=== PATIENT | female | born 1995 | race American Indian/Alaskan Native ===

== ENCOUNTER 2017-05-15 12:53 | Emergency (ER) | payer BC ==
[2017-05-15 14:22] LABS: Hematocrit 38.3 % (30.3-42.9); Mean Corpuscular HGB Conc 34 % (30-34); Mean Corpuscular Hemoglobin 30 pg (28-32); Mean Corpuscular Volume 88 fl (79-97); Platelet Count 120 K/mm3 (140-440); Red Blood Count 4.37 M/mm3 (3.65-5.03); Red Cell Distribution Width 14.7 % (13.2-15.2); White Blood Count 7.6 K/mm3 (4.5-11.0)
[2017-05-15 14:27] LABS: Bacteria,Urine 1+ /HPF (Negative); Bilirubin,Urine NEG (Negative); Blood,Urine NEG (Negative); Ketones,Urine NEG (Negative); Leukocyte Esterase,Urine NEG (Negative); Mucus,Urine 1+ /HPF; Nitrite,Urine NEG (Negative); Protein,Urine <15 mg/dL mg/dL (Negative)
[2017-05-15 14:40] LABS: Anion Gap 13 mmol/L; BUN/Creatinine Ratio 15; Blood Urea Nitrogen 9 mg/dL (7-17); Calcium 8.3 mg/dL (8.4-10.2); Carbon Dioxide 27 mmol/L (22-30); Chloride 101.2 mmol/L (98-107); Glucose 57 mg/dL (65-100); Potassium 3.8 mmol/L (3.6-5.0); Sodium 137 mmol/L (137-145)
--- NOTE | 2017-05-15 14:47 | Emergency Department Report ---
Chief Complaint: Dizziness Stated Complaint: PREGNACEY TEST Time Seen by Provider: 05/15/17 14:00 - HPI History of Present Illness: Patient here reports dizziness and nausea 1 weeks. She says she had a positive test at home. She says she has occasional sharp pain to her abdomen but she is not having any pain today. Last menstrual period was 2016. Patient's abdomen is 0-10. She reports some urinary frequency but no burning. Denies any vaginal bleeding. - ROS Review of Systems: All systems are negative unless stated in HPI above - Exam Vital Signs: Vital Signs 05/15/17 13:36 Temperature 99.2 F Pulse Rate 81 Respiratory 18 Rate Blood Pressure 101/51 O2 Sat by Pulse 100 Oximetry Physical Exam: Gen.: This is a 21-year-old female well-nourished well-developed in no acute distress. Abdomen: Non tender to palpated in all quadrants, soft, flat, no guarding or rebound tenderness. Normal bowel sounds in all quadrants MSE screening note: Focused history and physical exam performed. Due to findings the following was ordered: ED Medical Decision Making - Lab Data Result diagrams: 05/15/17 13:52 05/15/17 13:52 - Medical Decision Making MDM: Patient screened by provider in triage area. Appropriate protocol initiated and patient to be seen in main ED by ED Disposition for MSE Condition: Stable
--- NOTE | 2017-05-15 16:46 | Ultrasound Report ---
ULTRASOUND PELVIC COMPLETE ULTRASOUND TRANSVAGINAL HISTORY: Pelvic pain during , beta-hCG level 199.5. TECHNIQUE: Transabdominal and transvaginal ultrasound with color and spectral doppler interrogation. Longitudinal and transverse real-time images of the pelvis demonstrate that the uterus and right ovary are present and in a normal location. They are of normal echogenicity, contour and size. No pathologic changes in the adjacent tissues are noted. A 2.7 cm complex area is identified in the left ovary. This may represent a corpus luteum cyst. An ectopic is not entirely excluded at this time. The endometrial stripe measures 6 mm. No intrauterine patency is demonstrated. No adnexal mass or pelvic fluid. IMPRESSION: No intrauterine is visualized. Could represent spontaneous . No evidence for retained products of conception. Please note an ectopic is not entirely excluded at this time. Followup is recommended.
--- NOTE | 2017-05-15 17:48 | Emergency Department Report ---
HPI - General Chief Complaint: Dizziness Time Seen by Provider: 05/15/17 14:47 - HPI HPI: This is a 21-year-old female who presents to the emergency department with complaint of a one-week history of some lightheadedness and some nausea without vomiting. She took a home test about one week ago and it came back positive at that time. She has some intermittent sharp abdominal pains but currently is asymptomatic and denies any vaginal bleeding. She denies any past medical history. With this she would be with one live child. She did not take anything for her symptoms prior to presentation. She denies any fever, chest pain, shortness of breath, back pain. No recent travel or sick contacts at home. She does not have an [facility] or primary care physician. She is unsure of the exact last menstrual period, but says it was sometime in the first or second week of last month, March. ED Past Medical Hx - Past Medical History Previous Medical History?: No - Surgical History Past Surgical History?: No - Social History Smoking Status: Never Smoker Substance Use Type: None - Medications Home Medications: Home Medications Medication Instructions Recorded Confirmed Last Taken Type Vit Calc,Iron,Folic 1 each PO QDAY #30 tablet 05/15/17 Unknown Rx [ Vitamins] ED Review of Systems ROS: Stated complaint: PREGNACEY TEST Other details as noted in HPI Comment: All other systems reviewed and negative Constitutional: denies: chills, fever Eyes: denies: eye pain, eye discharge, vision change ENT: denies: ear pain, throat pain Respiratory: denies: cough, shortness of breath, wheezing Cardiovascular: denies: chest pain, palpitations Gastrointestinal: abdominal pain, nausea Genitourinary: denies: urgency, dysuria, discharge Musculoskeletal: denies: back pain, joint swelling, arthralgia Skin: denies: rash, lesions Neurological: other (dizziness/lightheadedness). denies: headache Physical Exam - Physical Exam Vital Signs: Vital Signs 05/15/17 13:36 Temperature 99.2 F Pulse Rate 81 Respiratory 18 Rate Blood Pressure 101/51 O2 Sat by Pulse 100 Oximetry Physical Exam: GENERAL: The patient is well-developed well-nourished. HENT: Normocephalic. Atraumatic. Patient has moist mucous membranes. EYES: Extraocular motions are intact. Pupils equal reactive to light bilaterally. NECK: Supple. Trachea is midline. CHEST/LUNGS: Clear to auscultation. There is no respiratory distress noted. HEART/CARDIOVASCULAR: Regular. There is no tachycardia. There is no gallop rub or murmur. ABDOMEN: Abdomen is soft, nontender. Patient has normal bowel sounds. There is no abdominal distention. SKIN: Skin is warm and dry. NEURO: The patient is awake, alert, and oriented. The patient is cooperative. The patient has no focal neurologic deficits. The patient has normal speech. MUSCULOSKELETAL: There is no tenderness or deformity. There is no limitation range of motion. There is no evidence of acute injury. ED Course Vital Signs 05/15/17 13:36 Temperature 99.2 F Pulse Rate 81 Respiratory 18 Rate Blood Pressure 101/51 O2 Sat by Pulse 100 Oximetry ED Medical Decision Making - Lab Data Result diagrams: 05/15/17 13:52 05/15/17 13:52 - Radiology Data Radiology results: report reviewed ULTRASOUND PELVIC COMPLETE ULTRASOUND TRANSVAGINAL HISTORY: Pelvic pain during , beta-hCG level 199.5. TECHNIQUE: Transabdominal and transvaginal ultrasound with color and spectral doppler interrogation. Longitudinal and transverse real-time images of the pelvis demonstrate that the uterus and right ovary are present and in a normal location. They are of normal echogenicity, contour and size. No pathologic changes in the adjacent tissues are noted. A 2.7 cm complex area is identified in the left ovary. This may represent a corpus luteum cyst. An ectopic is not entirely excluded at this time. The endometrial stripe measures 6 mm. No intrauterine patency is demonstrated. No adnexal mass or pelvic fluid. IMPRESSION: No intrauterine is visualized. Could represent spontaneous . No evidence for retained products of conception. Please note an ectopic is not entirely excluded at this time. Followup is recommended. Transcribed By: TTR Dictated By: KEELY CUELLAR JR, MD Electronically Authenticated By: KEELY CUELLAR JR, MD Signed Date/Time: 05/15/17 1642 - Medical Decision Making 21-year-old female presents with some dizziness and lightheadedness and a recent positive test. The majority of her labs are unremarkable. She has a beta hCG of 155. If the patient only recently became , that this might be a normal level and an early . However with a last menstrual period at the beginning of March, the patient should be closer to 4-6 weeks and 155 appears low. The ultrasound does not show any evidence of an intrauterine at this time. No evidence for retained products of conception. I discussed in great detail with the patient that she needs to return in 2-3 days for a repeat hormone level and potentially a repeat ultrasound. If the hormone level is increasing, potentially this is an early . If the hormone level is decreasing, this was most likely a miscarriage. She was started on vitamins and she will be treated as if she is until it is definitively ruled out. She understands and agrees to plan. - Differential Diagnosis , threatened miscarriage, spontaneous miscarriage, UTI Critical Care Time: No Critical care attestation.: If time is entered above; I have spent that time in minutes in the direct care of this critically ill patient, excluding procedure time. ED Disposition Clinical Impression: Threatened miscarriage, Dizziness Disposition: - TO HOME OR SELFCARE Is pt being admited?: No Condition: Stable Instructions: Threatened Miscarriage (ED), Lightheadedness (ED), Dizziness (ED) Additional Instructions: Please follow up with an [facility] or return to the emergency department in 2-3 days for a repeat hormone level and potentially a repeat ultrasound. Your hormone level today was 155. If the repeat level is increasing, there is the potential that this is an early and may need a repeat ultrasound at that time to see if there is any development of products of conception. If the repeat hormone level is decreasing at that time, then this was most likely a spontaneous miscarriage. For now, you will be started on vitamins. You can take Tylenol every 4 hours, using weight-based dosing, as needed for discomfort. Otherwise do not take any medications that are not prescribed by a physician. Return to the emergency Department with any worsening of your symptoms or any acute distress. Prescriptions: Vit Calc,Iron,Folic [ Vitamins] 1 each PO QDAY #30 tablet Referrals: [facility] [Provider Group] - 3-5 Days [facility] [Provider Group] - 3-5 Days [facility] [Provider Group] - 3-5 Days Time of Disposition: 17:48
[2017-05-15 18:02] VITALS: BP 100/56
== END 2017-05-15 18:03 | disposition home or self-care (01) ==
LOC: ED 12:53
DX: O20.0 Threatened abortion (principal); R42 Dizziness and giddiness
CPT/HCPCS: 36415; 76801; 76817; 80048; 81001; 84702; 85027